=== PATIENT | male | born 1960 | race Caucasian/White ===

== ENCOUNTER 2017-10-21 10:38 | Observation (INO) | payer OTHER ==
--- NOTE | 2017-10-21 11:04 | ED ---
Psych HPI - General Chief Complaint: Psychiatric Symptoms Stated Complaint: SUICIDAL Time Seen by Provider: 10/21/17 10:52 Source: patient, RN notes reviewed Mode of arrival: ambulatory Limitations: no limitations - History of Present Illness Initial Comments: This a 57-year-old male presents emergency Department chief complaint of depression, suicidal ideation. Patient states that he has a history of opiate abuse states he was on Suboxone prior to last 3 months because he moved from [place]. He states that he's been buying drugs off the streets and drinking alcohol daily. States he is drinking approximately 1/5 daily. He drank at least a half a fifth prior arrival. He has no physical complaints other chronic pain. Patient denies headache, dizziness, chest pain, shortness breath , abdominal pain, nausea vomiting diarrhea constipation. Patient states that he has tried overdoses in the past on Lyrica. Do not take any drugs prior arrival. Patient states that he recently lost his son who . Patient states that he doesn't plan to overdose again. Patient denies homicidal ideation - Related Data Home Medications Medication Instructions Recorded Confirmed No Known Home Medications [No 10/21/17 10/21/17 Known Home Medications] Allergies Allergy/AdvReac Type Severity Reaction Status Date / Time No Known Allergies Allergy Verified 10/21/17 11:20 Review of Systems ROS Statement: Those systems with pertinent positive or pertinent negative responses have been documented in the HPI. ROS Other: All systems not noted in ROS Statement are negative. Past Medical History Additional Past Medical History / Comment(s): back pain History of Any Multi-Drug Resistant Organisms: None Reported Additional Past Surgical History / Comment(s): hip sx, left leg sx Past Psychological History: Anxiety, Bipolar, Depression Smoking Status: Current every day smoker Past Alcohol Use History: Abuse, Daily Past Drug Use History: Opiates, Prescription Drug Abuse General Exam Limitations: no limitations General appearance: alert, in no apparent distress, appears intoxicated Head exam: Present: atraumatic, normocephalic, normal inspection Eye exam: Present: normal appearance, PERRL, EOMI. Absent: scleral icterus, conjunctival injection, periorbital swelling ENT exam: Present: normal exam, normal oropharynx, mucous membranes moist, TM's normal bilaterally Neck exam: Present: normal inspection, full ROM. Absent: tenderness, meningismus, lymphadenopathy Respiratory exam: Present: normal lung sounds bilaterally. Absent: respiratory distress, wheezes, rales, rhonchi, stridor Cardiovascular Exam: Present: regular rate, normal rhythm, normal heart sounds. Absent: systolic murmur, diastolic murmur, rubs, gallop, clicks Neurological exam: Present: alert, oriented X3, CN II-XII intact, reflexes normal. Absent: motor sensory deficit Psychiatric exam: Present: anxious, other (Patient was tearful) Skin exam: Present: warm, dry, intact, normal color. Absent: rash Course Vital Signs 10/21/17 10:40 Temperature 99 F Pulse Rate 119 H Respiratory 18 Rate Blood Pressure 150/97 O2 Sat by Pulse 96 Oximetry Medical Decision Making - Lab Data Lab Results 10/21/17 Range/Units 11:00 Urine Opiates Screen Not Detected (NotDetected) Ur Oxycodone Screen Detected H (NotDetected) Urine Methadone Screen Not Detected (NotDetected) Ur Propoxyphene Screen Not Detected (NotDetected) Ur Barbiturates Screen Not Detected (NotDetected) U Tricyclic Antidepress Not Detected (NotDetected) Ur Phencyclidine Scrn Not Detected (NotDetected) Ur Amphetamines Screen Not Detected (NotDetected) U Methamphetamines Scrn Not Detected (NotDetected) U Benzodiazepines Scrn Not Detected (NotDetected) Urine Cocaine Screen Not Detected (NotDetected) U Marijuana (THC) Screen Not Detected (NotDetected) Disposition Clinical Impression: Depression, Suicidal ideation, Drug abuse, Alcohol abuse Disposition: ADMITTED IP TO THIS [facility] Condition: Stable Is patient prescribed a controlled substance at d/c from ED?: No Referrals: None,Stated [Primary Care Provider] - 1-2 days
[2017-10-21 11:18] LABS: Amphetamine Screen,Urine Not Detected (NotDetected); Benzodiazepines Screen,Urine Not Detected (NotDetected); Cocaine Screen,Urine Not Detected (NotDetected); Methadone Screen, Urine Not Detected (NotDetected); Opiate Screen,Urine Not Detected (NotDetected); Phencyclidine Screen,Urine Not Detected (NotDetected); Tricyclic Antidepressant,Urine Not Detected (NotDetected); Urn Cannabinoid Scrn Not Detected (NotDetected)
[2017-10-21 11:19] LABS: Barbiturate Screen,Urine Not Detected (NotDetected); Oxycodone Screen, Urine Detected (NotDetected)
[2017-10-21] MEDS ORDERED: NICOTINE 21MG/24HR PATCH TRANSDERM STA (12:45)
[2017-10-21] MEDS ORDERED: IBUPROFEN 600 MG TAB PO STA (15:32)
[2017-10-21] MEDS ORDERED: LORazepam 2 MG/ML INJ IV PRN (18:52)
[2017-10-21] MEDS: SODIUM CHLORIDE 0.9% 1,000 ML IV SCH (19:28)
[2017-10-21] MEDS ORDERED: LORazepam 2 MG/ML INJ IV STA (19:31)
[2017-10-21] MEDS: THIAMINE 100 MG TAB PO SCH (19:54)
[2017-10-21] MEDS: LORazepam 2 MG/ML INJ IV PRN (22:43)
[2017-10-21] MEDS: IPRATROPIUM-ALBUTEROL 3 ML NEB INHALATION PRN (23:37)
[2017-10-22] MEDS: LORazepam 2 MG/ML INJ IV PRN ×16 (02:16→23:30)
[2017-10-22 03:41] VITALS: BMI 26.5
[2017-10-22] MEDS: SODIUM CHLORIDE 0.9% 1,000 ML IV SCH ×2 (06:08→17:12)
[2017-10-22] MEDS: ONDANSETRON 4 MG/2 ML VIAL IVP PRN ×2 (07:51→17:13)
--- NOTE | 2017-10-22 08:09 | HP ---
HISTORY AND PHYSICAL CHIEF COMPLAINT: A 57-year-old white male, was suicidal. He was placed on medical floor due to alcohol withdrawal, possible opiate abuse for which he states he has been on Suboxone for 3 months when he moved from [place]. He has been buying drugs on the street and drinking alcohol daily. We are giving him withdrawal treatment at this time with [facility] protocol. Psych consult is pending. He did not take any drugs prior to arrival. Recently lost his son who , does not plan to overdose again. Homicidal ideation is negative. Home medicines is negative except for possibly Suboxone. REVIEW OF SYSTEMS: Fourteen-point review of systems negative except for mentioned in HPI. PAST MEDICAL HISTORY: Back pain, anxiety, depression, bipolar. Current everyday smoker. Alcohol abuser, opiate prescription drug abuse. PHYSICAL EXAMINATION: PSYCH: Fair mood and affect. NEUROLOGIC: Alert and oriented x3. Cranial nerves are intact. Mild tremor in his extremities. CARDIOVASCULAR: S1, S2. LUNGS: Clear. GI: Soft. HEMATOLOGY: Negative Homans. VASCULAR: Normal dorsalis pedis, posterior tibial, radial pulse. Pulse 119, temp 99, respiratory rate 16 to 18, blood pressure 150/97, O2 is 96% on room air. Urine drug screen is positive for oxycodone. ASSESSMENT: 1. Depression. 2. Suicidal ideation. 3. Alcohol abuse. 4. Drug abuse. PLAN: We will give the patient anti-inflammatories for pain control. Psych consult is pending. Psychiatric consult will be appreciated. SANTOS / SUKUMARN: [id number] /
[2017-10-22 08:23] LABS: Anisocytosis Slight; Basophils % (A) 1 %; Eosinophils # (A) 0.1 k/uL (0-0.7); Eosinophils % (A) 3 %; HCT 42.7 % (39.0-53.0); HGB 13.5 gm/dL (13.0-17.5); Lymphocytes # (A) 0.7 k/uL (1.0-4.8); Lymphocytes % (A) 23 %; MCHC 31.5 g/dL (31.0-37.0); MCV 88.9 fL (80.0-100.0); Mean Platelet Volume 8.7; Monocytes # (A) 0.3 k/uL (0-1.0); Monocytes % (A) 12 %; Neutrophils # (A) 1.6 k/uL (1.3-7.7); Neutrophils % (A) 58 %; Platelet Count 109 k/uL (150-450); RBC 4.81 m/uL (4.30-5.90); RDW 16.3 % (11.5-15.5); WBC 2.8 k/uL (3.8-10.6)
[2017-10-22 08:37] LABS: ALT 111 U/L (21-72); AST 92 U/L (17-59); Albumin 3.4 g/dL (3.5-5.0); Alkaline Phosphatase 101 U/L (38-126); Anion Gap 8 mmol/L; Blood Urea Nitrogen 7 mg/dL (9-20); Calcium 8.4 mg/dL (8.4-10.2); Carbon Dioxide 26 mmol/L (22-30); Chloride 107 mmol/L (98-107); Glucose 112 mg/dL (74-99); Potassium 3.7 mmol/L (3.5-5.1); Sodium 141 mmol/L (137-145); Total Bilirubin 1.1 mg/dL (0.2-1.3); Total Protein 5.4 g/dL (6.3-8.2)
[2017-10-22] MEDS: ETODOLAC 400 MG TAB PO SCH ×2 (09:29→20:29)
--- NOTE | 2017-10-22 11:54 | P.CON ---
Consult Note - . Consult date: 10/22/17 Assessment/Plan:: This is a 57-year-old male was admitted to the hospital for suicidal ideation and alcohol withdrawal. Mr. Pruitt moved recently from [place] after the of his son. He states that he had been on Suboxone 32 mg a day for history of opioid abuse and chronic pain syndrome. The patient has been off of Suboxone since he moved to [place] due to his inability to find a physician to prescribe him this medication. 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 He also has widespread body pain and also lower back pain with radiation to both knees and numbness and tingling in both feet. He does have left hip pain status post total hip replacement previously. He is on Ativan 1 mg every hour for treatment of his delirium tremens. By physical exam he is alert oriented 3 in no apparent distress Straight leg raising test negative bilaterally He has normal muscle strength in the lower extremities for knee flexion and ankle flexion and extension. He has mild tenderness in the lumbar paravertebral area bilaterally. Recommendations: This is a 57-year-old male with history of alcohol and opioid abuse. The patient was admitted for suicidal ideation and treatment of delirium tremens. He used to be on 32 mg a day of Suboxone when he was an [place]. The patient should get back on Suboxone ,however our pain clinic is not certified to prescribe Suboxone. I do not have any objective evidence of his brain cyst as he states and I have no studies on his lumbar spine, however the patient does not look in severe pain . I will put him on [place] 5 mg every 6 hours when necessary pain. This medication should be held for sedation or for respiratory rate below 10/min. I do not see any indication for interventional pain procedures at this point. Thank you for the consultation.
[2017-10-22] MEDS: HYDROcodone/APAP 5-325MG 1 EACH TAB PO PRN ×2 (11:55→18:20)
[2017-10-22] MEDS: THIAMINE 100 MG TAB PO SCH ×2 (11:56→15:47)
--- NOTE | 2017-10-22 12:29 | P.CN ---
Psychiatric Consult - . Consult date: 10/22/17 Consult:: 10/22/17 12:19 Patient was seen for a psychiatry consult regarding suicidal ideas. Patient reports that he gets suicidal ideas when he is drinking and he was drinking quite heavily until yesterday morning. He denies suicidal thoughts now. His plan includes seeing a pain doctor who can prescribe him Suboxone since he says it has helped him with chronic pain. He also wants to be on Vivitrol injections to prevent him from drinking. But he also wants to take Suboxone. Patient denies ongoing psychiatric issues. This is a white male who was seen lying down in his bed. He is polite and cooperative. He does not show any psychomotor agitation or retardation. His speech is spontaneous relevant and goal-directed. His mood is euthymic to cheerful and affect is appropriate. He denies hallucinations and delusional thinking. He insists that he is not suicidal, wants to see a doctor who can prescribe him Suboxone, wants the shot of Vivitrol before he leaves etc. He is well oriented with adequate memory concentration etc. 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 This could be because of his impaired insight/judgment or his way of convincing us that he really wants to quit drinking alcohol by getting this shot. Vivitrol, according to the literature is useful in preventing opioid use. But its usefulness for alcohol dependence is not very well supported. Assessment: Patient does not seem to be any risk for suicide at this time. Patient seems to be somewhat manipulative to get what he wants. Suggestions: His suicide supervision with the sitter can be discontinued. Since he is looking for a doctor to prescribe Suboxone to him, use of Vivitrol does not appear to be a good option.
[2017-10-22] MEDS: NICOTINE 21MG/24HR PATCH TRANSDERM SCH (18:15)
[2017-10-22] MEDS: IPRATROPIUM-ALBUTEROL 3 ML NEB INHALATION PRN (19:35)
[2017-10-22] MEDS ORDERED: ZOLPIDEM 5 MG TAB PO PRN (20:45)
[2017-10-22 21:41] VITALS: RESP 18
[2017-10-23] MEDS: HYDROcodone/APAP 5-325MG 1 EACH TAB PO PRN ×3 (00:20→12:11)
[2017-10-23] MEDS: LORazepam 2 MG/ML INJ IV PRN ×9 (00:25→12:19)
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
[2017-10-23] MEDS: SODIUM CHLORIDE 0.9% 1,000 ML IV SCH (05:30)
[2017-10-23] MEDS: ETODOLAC 400 MG TAB PO SCH (07:44)
[2017-10-23] MEDS: NICOTINE 21MG/24HR PATCH TRANSDERM SCH (07:45)
[2017-10-23 08:04] VITALS: BP 135/85; PULSE 83; TEMP 97.6
[2017-10-23 08:22] LABS: ALT 101 U/L (21-72); AST 69 U/L (17-59); Albumin 3.5 g/dL (3.5-5.0); Alkaline Phosphatase 96 U/L (38-126); Anion Gap 10 mmol/L; Blood Urea Nitrogen 7 mg/dL (9-20); Calcium 8.5 mg/dL (8.4-10.2); Carbon Dioxide 24 mmol/L (22-30); Chloride 108 mmol/L (98-107); Glucose 96 mg/dL (74-99); Potassium 3.6 mmol/L (3.5-5.1); Sodium 142 mmol/L (137-145); Total Bilirubin 1.3 mg/dL (0.2-1.3); Total Protein 5.6 g/dL (6.3-8.2)
[2017-10-23 08:39] LABS: Anisocytosis Slight; Basophils % (A) 0 %; Eosinophils # (A) 0.1 k/uL (0-0.7); Eosinophils % (A) 2 %; HCT 40.8 % (39.0-53.0); Lymphocytes # (A) 0.7 k/uL (1.0-4.8); Lymphocytes % (A) 22 %; MCH 28.8 pg (25.0-35.0); MCHC 31.9 g/dL (31.0-37.0); MCV 90.1 fL (80.0-100.0); Mean Platelet Volume 8.3; Monocytes # (A) 0.3 k/uL (0-1.0); Monocytes % (A) 10 %; Neutrophils % (A) 62 %; Platelet Count 109 k/uL (150-450); RBC 4.53 m/uL (4.30-5.90); RDW 16.2 % (11.5-15.5); WBC 3.2 k/uL (3.8-10.6)
[2017-10-23] MEDS: THIAMINE 100 MG TAB PO SCH (11:34)
== END 2017-10-23 12:50 | disposition home or self-care (01) ==
LOC: EC 10:38 → 5MS5E 19:53
PROVIDERS: ADMIT Family Medicine; ATTEND Family Medicine
DX: F10.231 Alcohol dependence with withdrawal delirium (principal); R45.851 Suicidal ideations; F17.200 Nicotine dependence, unspecified, uncomplicated; F19.10 Other psychoactive substance abuse, uncomplicated; F32.9 Major depressive disorder, single episode, unspecified; M54.5 Low back pain; Z96.642 Presence of left artificial hip joint; J44.9 Chronic obstructive pulmonary disease, unspecified; K21.9 Gastro-esophageal reflux disease without esophagitis; Z95.0 Presence of cardiac pacemaker; G93.0 Cerebral cysts; Z80.1 Family history of malignant neoplasm of trachea, bronchus and lung; F41.9 Anxiety disorder, unspecified
CPT/HCPCS: 96374 ×2; 99285 ×2; 96376 ×3; 82075; 94640 ×2; 80053 ×2; 85025 ×2; 80306; G0378 ×3; S4990 ×3; J2060 ×3; J2405